=== PATIENT | male | born 1980 | race African-American/Black ===

== ENCOUNTER 2017-06-30 08:11 | Emergency (ER) | payer OTHER ==
[2017-06-30 08:16] VITALS: BP 123/83; PULSE 69; RESP 20; TEMP 98.2; O2SAT 98
--- NOTE | 2017-06-30 08:57 | C.PDOC ---
History Of Present Illness 36 y/o male, otherwise well, no significant PMHx, presents to ED with c/o sore throat and right neck pain for 2-3 days. Patient also reports subjective fever, painful swallowing, and body aches. Denies sick contacts, nausea, vomiting, diarrhea, or other associated symptoms. Time Seen by Provider: 06/30/17 08:26 Chief Complaint (Nursing): ENT Problem History Per: Patient History/Exam Limitations: no limitations Onset/Duration Of Symptoms: Days Current Symptoms Are (Timing): Still Present Location Of Pain: Throat Sick Contacts (Context): None Associated Symptoms: Fever (subjective), Neck Pain, Myalgias. denies: Cough, Vomiting, Diarrhea Ear Symptoms: Bilateral: None Recent travel outside of the [place]: No Past Medical History Reviewed: Historical Data, Nursing Documentation, Vital Signs Vital Signs: Last Vital Signs Temp 98.2 F 06/30/17 08:14 Pulse 69 06/30/17 08:14 Resp 20 06/30/17 08:14 BP 123/83 06/30/17 08:14 Pulse Ox 98 06/30/17 09:12 - Medical History PMH: No Chronic Diseases Family History: States: Unknown Family Hx - Social History Hx Alcohol Use: Yes Hx Substance Use: No - Immunization History Hx Tetanus Toxoid Vaccination: No Hx Influenza Vaccination: No Hx Pneumococcal Vaccination: No Review Of Systems Constitutional: Negative for: Fever, Chills ENT: Positive for: Throat Pain Cardiovascular: Negative for: Chest Pain Respiratory: Negative for: Cough, Shortness of Breath, Wheezing Musculoskeletal: Positive for: Neck Pain (right submandibular) Neurological: Negative for: Headache Physical Exam - Physical Exam Appears: Non-toxic, No Acute Distress Skin: Normal Color, Warm, Dry Head: Atraumatic, Normacephalic Eye(s): bilateral: Normal Inspection, PERRL, EOMI Ear(s): Left: TM Erythema, Other (no tragal tenderness), Right: Normal, Bilateral: Other Nose: Normal Oral Mucosa: Moist Tongue: Normal Appearing Lips: Normal Appearing Teeth: Normal Dentition Throat: Erythema (mild), No Exudate, Other (no tonsilar enlargment or exudate) Neck: Supple Lymphatic: Adenopathy (tender right submandibular nodes) Chest: Symmetrical Cardiovascular: Rhythm Regular, No Murmur Respiratory: Normal Breath Sounds, No Rales, No Rhonchi, No Stridor, No Wheezing Neurological/Psych: Oriented x3, Normal Speech, Normal Cognition ED Course And Treatment O2 Sat by Pulse Oximetry: 98 (RA) Pulse Ox Interpretation: Normal Medical Decision Making Medical Decision Making: Plan: * Tylenol, throat culture, rapid strep * Reassess Progress: On reassessment, pt resting comfortably, in no acute distress. Advised follow up with clinic in 1-2 days, and to take Tylenol as directed. Disposition - Disposition Referrals: [facility] at [facility] [Outside] Disposition: HOME/ ROUTINE Disposition Time: 09:06 Condition: STABLE Additional Instructions: Gargle with warm salty water 2-3 times a day, Take Tylenol as prescribed for pain. Follow up in medical clinic in a few days. Return to ER for any worsening symptoms. 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 - Scribe Statement The provider has reviewed the documentation as recorded by the Scribe SM All medical record entries made by the Scribe were at my direction and personally dictated by me. I have reviewed the chart and agree that the record accurately reflects my personal performance of the history, physical exam, medical decision making, and the department course for this patient. I have also personally directed, reviewed, and agree with the discharge instructions and disposition.
== END 2017-06-30 09:17 | disposition home or self-care (01) ==
LOC: C.ER 08:11
DX: J02.9 Acute pharyngitis, unspecified (principal)

== ENCOUNTER 2017-07-03 23:20 | Emergency (ER) | payer SELFPAY ==
[2017-07-03 23:47] VITALS: BP 126/90; PULSE 79; RESP 16; TEMP 98.3; O2SAT 98
[2017-07-03] MEDS ORDERED: Promethazine/Cod 6.25mg-10mg/5ml Syr UD PO STA (23:55)
[2017-07-04] MEDS ORDERED: Promethazine/Cod 6.25mg-10mg/5ml Syr UD ONE (00:03)
--- NOTE | 2017-07-04 00:06 | C.PDOC ---
History Of Present Illness 36 y/o male c/o cough, body aches, and sore throat for 3 days now. Patient took OTC meds with no relief. Denies chest pain or SOB. No sick contact or recent travel. Time Seen by Provider: 07/03/17 23:49 Chief Complaint (Nursing): Cough, Cold, Congestion History Per: Patient History/Exam Limitations: no limitations Onset/Duration Of Symptoms: Days Current Symptoms Are (Timing): Still Present Location Of Pain: Throat Sick Contacts (Context): None Ear Symptoms: Bilateral: None Severity: Mild Recent travel outside of the [place]: No Additional History Per: Patient Past Medical History Reviewed: Historical Data, Nursing Documentation, Vital Signs Vital Signs: Last Vital Signs Temp 98.3 F 07/03/17 23:44 Pulse 79 07/03/17 23:44 Resp 16 07/03/17 23:44 BP 126/90 07/03/17 23:44 Pulse Ox 98 07/04/17 02:39 Family History: States: Unknown Family Hx - Social History Hx Alcohol Use: Yes Hx Substance Use: No - Immunization History Hx Tetanus Toxoid Vaccination: No Hx Influenza Vaccination: No Hx Pneumococcal Vaccination: No Review Of Systems Constitutional: Positive for: Other (Body aches) ENT: Positive for: Throat Pain Cardiovascular: Negative for: Chest Pain Respiratory: Positive for: Cough. Negative for: Shortness of Breath Physical Exam - Physical Exam Appears: Non-toxic, No Acute Distress Skin: Warm, Dry Head: Atraumatic, Normacephalic Oral Mucosa: Moist Throat: Normal, No Erythema, No Exudate Neck: Supple Cardiovascular: Rhythm Regular Respiratory: Normal Breath Sounds, No Rales, No Rhonchi, No Wheezing, No Other ( Retractions) Gastrointestinal/Abdominal: Soft, No Tenderness Neurological/Psych: Oriented x3 ED Course And Treatment O2 Sat by Pulse Oximetry: 98 (RA) Pulse Ox Interpretation: Normal Progress Note: Plans: phenergan with Codeine, Motrin. Patient is resting comfortably, and is in no acute distress. Patient was instructed to follow up with PMD in 1-2 days for further evaluation. Disposition Counseled Patient/Family Regarding: Diagnosis, Need For Followup, Rx Given - Disposition Referrals: at [facility] [Outside] Disposition: HOME/ ROUTINE Disposition Time: 00:04 Condition: STABLE Additional Instructions: Increase PO fluids Take meds as directed Return to ER if worse Prescriptions: Benzonatate [Tessalon Perles] 100 mg PO TID #20 sgl Cetirizine HCl [Zyrtec] 10 mg PO DAILY #20 capsule Ibuprofen [Motrin] 600 mg PO Q6H #30 tab Instructions: Upper Respiratory Infection (ED) Forms: [facility] (Sinhala) - Clinical Impression Clinical Impression: Upper respiratory infection - Scribe Statement The provider has reviewed the documentation as recorded by the Scribe Kathleen mcacbe All medical record entries made by the Scribe were at my direction and personally dictated by me. I have reviewed the chart and agree that the record accurately reflects my personal performance of the history, physical exam, medical decision making, and the department course for this patient. I have also personally directed, reviewed, and agree with the discharge instructions and disposition.
== END 2017-07-04 00:17 | disposition home or self-care (01) ==
LOC: C.ER 23:20
DX: J06.9 Acute upper respiratory infection, unspecified (principal)

== ENCOUNTER 2017-09-24 12:39 | Emergency (ER) | payer OTHER ==
[2017-09-24 12:57] VITALS: BP 135/88; PULSE 84; TEMP 98.4; O2SAT 100
--- NOTE | 2017-09-24 13:01 | C.PDOC ---
History Of Present Illness l ear fb since yesterday. ps EAR PIECE BUD STUCK. +DISCOMFORT, DENIES DC. EXAM NAD HEENT L EAR +WHITE PLASTIC FB GROSSLY VISUALIZED L EAR CANAL. REMAINDER EAR ATRAUM. REMAINDER NEG Time Seen by Provider: 09/24/17 12:54 Chief Complaint (Nursing): Foreign Body History Per: Patient History/Exam Limitations: None Onset/Duration Of Symptoms: Days Current Symptoms Are (Timing): Still Present Severity: Moderate Past Medical History Reviewed: Historical Data, Nursing Documentation, Vital Signs Vital Signs: Last Vital Signs Temp 98.4 F 09/24/17 12:55 Pulse 84 09/24/17 12:55 Resp 16 09/24/17 13:08 BP 135/88 09/24/17 12:55 Pulse Ox 100 09/24/17 14:19 - Medical History PMH: No Chronic Diseases Surgical History: No Surg Hx Family History: States: No Known Family Hx - Social History Hx Alcohol Use: Yes Hx Substance Use: No - Immunization History Hx Tetanus Toxoid Vaccination: No Hx Influenza Vaccination: No Hx Pneumococcal Vaccination: No Review Of Systems Except As Marked, All Systems Reviewed And Found Negative. ENT: Positive for: Other (left ear discomfort). Negative for: Ear Discharge Physical Exam - Physical Exam Appears: Non-toxic, No Acute Distress Skin: Normal Color, Warm Head: Atraumatic, Normacephalic Eye(s): bilateral: Normal Inspection, PERRL Ear(s): Left: Other (white plastic foreign body grossly visualized left ear canal, ear atraumatic) Neurological/Psych: Oriented x3, Normal Speech, Normal Cognition, Normal Motor, Normal Sensation ED Course And Treatment O2 Sat by Pulse Oximetry: 100 (RA) Pulse Ox Interpretation: Normal Disposition Counseled Patient/Family Regarding: Diagnosis, Need For Followup - Disposition Referrals: [facility] [Outside] [facility] at [facility] [Outside] Disposition: HOME/ ROUTINE Disposition Time: 12:59 Condition: IMPROVED Instructions: Ear Foreign Body (ED) Forms: [facility] ([place] Citizen) - Clinical Impression Clinical Impression: Ear foreign body - Scribe Statement The provider has reviewed the documentation as recorded by the Scribe Jose Esquivel Provider Attestation: All medical record entries made by the Scribe were at my direction and personally dictated by me. I have reviewed the chart and agree that the record accurately reflects my personal performance of the history, physical exam, medical decision making, and the department course for this patient. I have also personally directed, reviewed, and agree with the discharge instructions and disposition. PROCEDURES - FB Removal Ear Left Foreign Body Location: Ear Canal Left Foreign Body Suspected: Plastic TM Intact Pre-Procedure: Unable to Visualize Foreign Body Removed: Yes Foreign Body Removal Technique: Forceps TM Intact Post Procedure: Yes Patient Tolorated Procedure: Well Complications: None
[2017-09-24 13:28] VITALS: RESP 16
== END 2017-09-24 13:03 | disposition home or self-care (01) ==
LOC: C.ER 12:39
DX: T16.2XXA Foreign body in left ear, initial encounter (principal); X58.XXXA Exposure to other specified factors, initial encounter

== ENCOUNTER 2017-12-05 13:01 | Emergency (ER) | payer OTHER ==
[2017-12-05] MEDS ORDERED: Sodium Chloride 0.9% 1,000 ML IV ONE (13:18)
[2017-12-05] MEDS ORDERED: Sodium Chloride 0.9% 1,000 ML ONE (13:27)
--- NOTE | 2017-12-05 13:29 | C.PDOC ---
History Of Present Illness 37 y/o male presents to the ED complaining of left lower quadrant abdominal pain since waking up today. Pain is described as a pressure-like sensation, radiating into the suprapubic area. Also reports having increased discomfort with urination. Urine appears darker in color than usual. Otherwise he denies any back pain, scrotal pain, fever, chills, nausea, or vomiting. No previous history of similar pain. PMD: the clinic Time Seen by Provider: 12/05/17 13:09 Chief Complaint (Nursing): Abdominal Pain History Per: Patient History/Exam Limitations: no limitations Onset/Duration Of Symptoms: Days (x1) Current Symptoms Are (Timing): Still Present Location Of Pain/Discomfort: LLQ Associated Symptoms: Urinary Symptoms Past Medical History Reviewed: Historical Data, Nursing Documentation, Vital Signs Vital Signs: Last Vital Signs Temp 98.2 F 12/05/17 13:06 Pulse 74 12/05/17 13:06 Resp 16 12/05/17 13:06 BP 131/87 12/05/17 13:06 Pulse Ox 97 12/05/17 13:31 Surgical History: No Surg Hx Family History: States: Unknown Family Hx - Social History Hx Tobacco Use: No Hx Alcohol Use: Yes Hx Substance Use: No - Immunization History Hx Tetanus Toxoid Vaccination: No Hx Influenza Vaccination: No Hx Pneumococcal Vaccination: No Review Of Systems Except As Marked, All Systems Reviewed And Found Negative. Constitutional: Negative for: Fever, Chills Gastrointestinal: Positive for: Abdominal Pain (LLQ). Negative for: Nausea, Vomiting Genitourinary: Positive for: Dysuria (increased abdominal pain w/ urination), Other (dark urine). Negative for: Scrotal Pain Physical Exam - Physical Exam Appears: Non-toxic, No Acute Distress Skin: Normal Color, Warm, Dry Head: Atraumatic, Normacephalic Eye(s): bilateral: Normal Inspection, PERRL, EOMI Nose: Normal Oral Mucosa: Moist Neck: Normal ROM, Supple Chest: Symmetrical Cardiovascular: Rhythm Regular, No Murmur Respiratory: Normal Breath Sounds, No Accessory Muscle Use Gastrointestinal/Abdominal: Soft, Tenderness (mild tenderness to the LLQ), No Guarding, No Rebound Back: Normal Inspection, No CVA Tenderness, No Vertebral Tenderness Extremity: Bilateral: Atraumatic, Normal Color And Temperature, Normal ROM Neurological/Psych: Oriented x3, Normal Speech ED Course And Treatment - Laboratory Results Result Diagrams: 12/05/17 13:34 12/05/17 13:34 Lab Interpretation: Abnormal (Urine RBC 1930, WBC 105) O2 Sat by Pulse Oximetry: 97 (RA) Pulse Ox Interpretation: Normal - CT Scan/US CT abdomen and pelvis Other Rad Studies (CT/US): Read By Radiologist, Radiology Report Reviewed CT/US Interpretation: Accession No. : [id number]. Patient Name / ID : TONIO MEADOWS / [id number]. Exam Date : 12/05/2017 13:47:01 ( Approved ). Study Comment : Sex / Age : M / 37Y. Creator : Lashaun Sánchez. Dictator : Chris Fields MD. Radio Time Buyer : Assistant Tennis Coach : Chris Fields MD. Approver2 : Report Date : 12/05/2017 13:57:32. My Comment : . PROCEDURE: CT Abdomen and Pelvis without intravenous contrast. HISTORY: abd pain. COMPARISON: None. TECHNIQUE: Without contrast.. Contrast Dose: 0. Radiation dose: Total exam DLP = 795.86 mGy-cm. This CT exam was performed using one or more of the following dose reduction techniques: Automated exposure control, adjustment of the mA and/or kV according to patient size, and/ or use of iterative reconstruction technique. FINDINGS: LOWER THORAX: Unremarkable. LIVER: Unremarkable. No gross lesion or ductal dilatation. GALLBLADDER AND BILE DUCTS: Unremarkable. PANCREAS: Unremarkable. No gross lesion or ductal dilatation. SPLEEN: Unremarkable. ADRENALS: Unremarkable. No mass. KIDNEYS AND URETERS: 5 mm nonobstructing right upper pole renal calculus. 3 mm nonobstructing left lower pole renal calculus. No mass or hydronephrosis. VASCULATURE: Unremarkable. No aortic aneurysm. BOWEL: Unremarkable. No obstruction. No gross mural thickening. APPENDIX: Unremarkable. Normal appendix. PERITONEUM: Unremarkable. No free fluid. No free air. LYMPH NODES: Unremarkable. No enlarged lymph nodes. BLADDER: Nondistended. REPRODUCTIVE: Normal prostate. BONES: No acute fracture. OTHER FINDINGS: None. IMPRESSION: Bilateral small nonobstructing renal calculi. No additional abnormality. Reevaluation Time: 14:17 Reassessment Condition: Improved Medical Decision Making Medical Decision Making: Time: 13:18 Initial Plan: --CMP --CBC --Urinalysis --IV fluids --CT Abd/Pelvis W/O contrast Disposition Counseled Patient/Family Regarding: Studies Performed, Diagnosis, Need For Followup, Rx Given - Disposition Referrals: [facility] [Outside] Disposition: HOME/ ROUTINE Disposition Time: 14:20 Condition: IMPROVED Prescriptions: Naproxen [Naprosyn] 1 tab PO BID PRN #25 tab PRN Reason: Pain Nitrofurantoin Macrocrystals [Macrobid] 1 cap PO BID #14 cap Instructions: Kidney Stones in Adults Forms: [facility] (Serbian) - Clinical Impression Clinical Impression: Renal colic on left side - Scribe Statement The provider has reviewed the documentation as recorded by the Scribe (Shala Deal) Provider Attestation: All medical record entries made by the Scribe were at my direction and personally dictated by me. I have reviewed the chart and agree that the record accurately reflects my personal performance of the history, physical exam, medical decision making, and the department course for this patient. I have also personally directed, reviewed, and agree with the discharge instructions and disposition.
[2017-12-05 13:47] LABS: BASO # 0.1 K/uL (0.0-0.2); BASO % 0.8 % (0.0-2.0); EOS # 0.1 K/uL (0.0-0.7); EOS % 1.9 % (0.0-4.0); HEMOGLOBIN 16.4 g/dL (12.0-18.0); LYMPH % 28.5 % (20.0-40.0); MEAN CELL VOLUME 85.9 fL (80.0-94.0); MEAN CORPUSCULAR HEMOGLOBIN 29.3 pg (27.0-31.0); MEAN CORPUSCULAR HGB CONC 34.2 g/dL (33.0-37.0); MEAN PLATELET VOLUME 8.6 fL (7.2-11.7); MONO # 0.4 K/uL (0.0-0.8); MONO % 5.7 % (0.0-10.0); NEUT # 4.5 K/uL (1.8-7.0); NEUT % 63.1 % (50.0-75.0); NRBC % 0.1 % (0.0-2.0); RBC 5.6 Mil/uL (4.40-5.90); RED CELL DISTRIBUTION WIDTH 12.2 % (11.5-14.5); WHITE BLOOD COUNT 7.2 K/uL (4.8-10.8)
[2017-12-05 13:51] LABS: ALB/GLOB RATIO 1.2 (1.0-2.1); ALBUMIN 4.1 g/dL (3.5-5.0); ALT/SGPT 68 U/L (21-72); AST/SGOT 38 U/L (17-59); BLOOD UREA NITROGEN 12 mg/dL (9-20); CALCIUM 8.8 mg/dl (8.6-10.4); GFR AFRICAN-AMERICAN > 60; GFR NON-AFRICAN AMERICAN > 60
[2017-12-05 13:56] LABS: SQUAMOUS EPITHIAL 1 /hpf (0-5); URINE BACTERIA OCC (<OCC); URINE BILIRUBIN NEGATIVE (NEGATIVE); URINE BLOOD 3+ (NEGATIVE); URINE CLARITY Hazy (Clear); URINE GLUCOSE (UA) NORMAL (Normal); URINE LEUKOCYTE ESTERASE NEG Leu/uL (Negative); URINE PROTEIN 2+ mg/dL (NEGATIVE); URINE UROBILINOGEN NORMAL mg/dL (0.2-1.0)
[2017-12-05 14:00] LABS: URINE COLOR LIGHT BROWN (YELLOW)
--- NOTE | 2017-12-05 14:08 | CT ---
PROCEDURE: CT Abdomen and Pelvis without intravenous contrast HISTORY: abd pain COMPARISON: None. TECHNIQUE: Without contrast.. Contrast Dose: 0 Radiation dose: Total exam DLP = 795.86 mGy-cm. This CT exam was performed using one or more of the following dose reduction techniques: Automated exposure control, adjustment of the mA and/or kV according to patient size, and/or use of iterative reconstruction technique. FINDINGS: LOWER THORAX: Unremarkable. LIVER: Unremarkable. No gross lesion or ductal dilatation. GALLBLADDER AND BILE DUCTS: Unremarkable. PANCREAS: Unremarkable. No gross lesion or ductal dilatation. SPLEEN: Unremarkable. ADRENALS: Unremarkable. No mass. KIDNEYS AND URETERS: 5 mm nonobstructing right upper pole renal calculus. 3 mm nonobstructing left lower pole renal calculus. No mass or hydronephrosis. VASCULATURE: Unremarkable. No aortic aneurysm. BOWEL: Unremarkable. No obstruction. No gross mural thickening. APPENDIX: Unremarkable. Normal appendix. PERITONEUM: Unremarkable. No free fluid. No free air. LYMPH NODES: Unremarkable. No enlarged lymph nodes. BLADDER: Nondistended REPRODUCTIVE: Normal prostate BONES: No acute fracture. OTHER FINDINGS: None. IMPRESSION: Bilateral small nonobstructing renal calculi. No additional abnormality.
[2017-12-05 14:33] VITALS: BP 133/94; PULSE 68; RESP 18; TEMP 97.5; O2SAT 99
== END 2017-12-05 14:45 | disposition home or self-care (01) ==
LOC: C.ER 13:01
DX: N20.0 Calculus of kidney (principal)
CPT/HCPCS: 74176; 80053; 81001; 85025; 96360; 99284; J7040

== ENCOUNTER 2017-12-07 15:54 | Emergency (ER) | payer OTHER ==
[2017-12-07 16:03] VITALS: TEMP 98.4; O2SAT 99
[2017-12-07 16:33] LABS: BASO # 0.1 K/uL (0.0-0.2); BASO % 1.4 % (0.0-2.0); EOS # 0.2 K/uL (0.0-0.7); EOS % 1.7 % (0.0-4.0); HEMOGLOBIN 16.5 g/dL (12.0-18.0); LYMPH # 2.9 K/uL (1.0-4.3); LYMPH % 31.3 % (20.0-40.0); MEAN CELL VOLUME 85.2 fL (80.0-94.0); MEAN CORPUSCULAR HEMOGLOBIN 29.6 pg (27.0-31.0); MEAN CORPUSCULAR HGB CONC 34.7 g/dL (33.0-37.0); MEAN PLATELET VOLUME 8.9 fL (7.2-11.7); MONO # 0.8 K/uL (0.0-0.8); MONO % 8.9 % (0.0-10.0); NEUT # 5.2 K/uL (1.8-7.0); NEUT % 56.7 % (50.0-75.0); NRBC % 0.1 % (0.0-2.0); RBC 5.59 Mil/uL (4.40-5.90); RED CELL DISTRIBUTION WIDTH 11.9 % (11.5-14.5); WHITE BLOOD COUNT 9.3 K/uL (4.8-10.8)
[2017-12-07 16:46] LABS: ALB/GLOB RATIO 1.3 (1.0-2.1); ALT/SGPT 70 U/L (21-72); AST/SGOT 38 U/L (17-59); BLOOD UREA NITROGEN 12 mg/dL (9-20); CALCIUM 8.1 mg/dl (8.6-10.4); GFR AFRICAN-AMERICAN > 60; GFR NON-AFRICAN AMERICAN > 60
[2017-12-07] MEDS ORDERED: Sodium Chloride 0.9% 1,000 ML IV ONE (16:48)
[2017-12-07 16:50] LABS: URINE BACTERIA RARE (<OCC); URINE BILIRUBIN NEGATIVE (NEGATIVE); URINE BLOOD 2+ (NEGATIVE); URINE CLARITY Clear (Clear); URINE COLOR Yellow (YELLOW); URINE GLUCOSE (UA) NORMAL (Normal); URINE LEUKOCYTE ESTERASE NEG Leu/uL (Negative); URINE PROTEIN NEGATIVE (NEGATIVE); URINE UROBILINOGEN NORMAL mg/dL (0.2-1.0)
[2017-12-07] MEDS ORDERED: LIDOCAINE IV STA (16:51)
[2017-12-07] MEDS ORDERED: SODIUM CHLORIDE 0.9% IV STA (16:51)
--- NOTE | 2017-12-07 16:53 | C.PDOC ---
History Of Present Illness 37 y/o male presents to the ER c/o a sudden onset of left-sided flank pain which started at 3 pm today. Pt states that he took 500 mg Naproxen at 3 pm. Pt was seen in [facility] ER on 12/05/17 for left-sided flank pain. He was diagnosed with kidney stones. Denies n/v/d. Time Seen by Provider: 12/07/17 16:20 Chief Complaint (Nursing): Abdominal Pain History Per: Patient History/Exam Limitations: no limitations Onset/Duration Of Symptoms: Hrs Current Symptoms Are (Timing): Still Present Severity: Moderate Associated Symptoms: denies: Fever, Chills, Nausea, Vomiting, Diarrhea Past Medical History Reviewed: Historical Data, Nursing Documentation, Vital Signs Vital Signs: Last Vital Signs Temp 98.4 F 12/07/17 15:59 Pulse 86 12/07/17 19:12 Resp 18 12/07/17 19:12 BP 137/90 12/07/17 19:12 Pulse Ox 99 12/07/17 19:30 - Medical History PMH: No Chronic Diseases Surgical History: No Surg Hx Family History: States: No Known Family Hx - Social History Hx Tobacco Use: No Hx Alcohol Use: Yes Hx Substance Use: No - Immunization History Hx Tetanus Toxoid Vaccination: No Hx Influenza Vaccination: No Hx Pneumococcal Vaccination: No Review Of Systems Constitutional: Negative for: Fever, Chills Gastrointestinal: Positive for: Abdominal Pain (left-sided flank pain). Negative for: Nausea, Vomiting, Diarrhea Physical Exam - Physical Exam Appears: Non-toxic, Other (uncomfortable) Skin: Warm, Dry Head: Atraumatic, Normacephalic Eye(s): bilateral: Normal Inspection Neck: Supple Chest: Symmetrical Cardiovascular: Rhythm Regular, No Murmur Respiratory: Normal Breath Sounds, No Rales, No Rhonchi, No Wheezing Gastrointestinal/Abdominal: Soft, No Tenderness, No Guarding, No Rebound Back: No CVA Tenderness Neurological/Psych: Oriented x3, Normal Speech, Normal Motor, Normal Sensation ED Course And Treatment - Laboratory Results Result Diagrams: 12/07/17 16:28 12/07/17 16:28 O2 Sat by Pulse Oximetry: 99 (RA) Pulse Ox Interpretation: Normal - Other Rad O-Pgf-[id number] X-Ray: Viewed By Me, Read By Radiologist Interpretation: HISTORY: left flank pain. COMPARISON: No prior. FINDINGS: BOWEL: Normal bowel gas pattern. 5-6 mm calculus projects over left kidney. No other abnormal intra-abdominal calcifications. No hepatic or splenic enlargement. BONES: Normal. OTHER FINDINGS: None. IMPRESSION: 5-6 mm calculus projecting over left kidney. Otherwise unremarkable. Medical Decision Making Medical Decision Making: Plan: --Labs --UA --X-Ray- Abdomen --Flomax PO --Tylenol PO --IV Fluids ct scan results reviewed from 12/05; pt had 3 mm lower pole left kidney stone at that time; pt now with left flank pain radiating to groin; likely that stone passed from Kidney. 728 pm pt is pain free, abdomen soft, nd, and non tender. will d/c home; pt to continue naproxen and macrobid; will add flomax and tylenol. f/u clinic and urology. Disposition Counseled Patient/Family Regarding: Studies Performed, Diagnosis, Need For Followup, Rx Given - Disposition Referrals: Donell Broderick MD [Staff Provider] - [facility] [Outside] Disposition: HOME/ ROUTINE Disposition Time: 19:33 Condition: IMPROVED Additional Instructions: Please drink a lot of fluids. Strain all urine for stone, keep when it passes and bring to urologist for analysis. Follow up with urologist and medical clinic. Continue taking Macrobid and Naproxen as prescribed. Take Tylenol in between doses of naproxen. Take FLomax as prescribed. Prescriptions: Acetaminophen [Tylenol 325mg tab] 650 mg PO Q4 #50 tab Tamsulosin [Flomax] 0.4 mg PO DAILY #7 cap Instructions: Renal Colic (DC) Forms: [facility] [employer] (Japanese) - Clinical Impression Clinical Impression: Renal colic on left side - PA / CREELER / Resident Statement MD/DO has reviewed & agrees with the documentation as recorded. - Scribe Statement The provider has reviewed the documentation as recorded by the Winston Esquivel Provider Attestation All medical record entries made by the Winston were at my direction and personally dictated by me. I have reviewed the chart and agree that the record accurately reflects my personal performance of the history, physical exam, medical decision making, and the department course for this patient. I have also personally directed, reviewed, and agree with the discharge instructions and disposition.
--- NOTE | 2017-12-07 17:47 | RAD ---
HISTORY: left flank pain COMPARISON: No prior. FINDINGS: BOWEL: Normal bowel gas pattern. 5-6 mm calculus projects over left kidney. No other abnormal intra-abdominal calcifications. No hepatic or splenic enlargement. BONES: Normal. OTHER FINDINGS: None. IMPRESSION: 5-6 mm calculus projecting over left kidney. Otherwise unremarkable.
[2017-12-07 19:13] VITALS: BP 137/90; PULSE 86; RESP 18
== END 2017-12-07 19:51 | disposition home or self-care (01) ==
LOC: C.ER 15:54
DX: N20.0 Calculus of kidney (principal)
CPT/HCPCS: 74018; 80053; 81001; 85025; 96361; 96374; 96375; 99285; J1885; J2001; J2270; J7040